=== PATIENT | male | born 1970 | race Caucasian/White ===

== ENCOUNTER 2016-05-15 11:25 | Inpatient (IN) | payer OTHER ==
[2016-05-15 11:59] LABS: % IMMATURE GRANULYOCYTES 0.4 % (0.0-1.1); ABSOLUTE IMMATURE GRANULOCYTES 0.04 10^3/uL (0.00-0.10); ADD DIFF? NO; ADD MORPH? NO; ADD SCAN? NO; ATYPICAL LYMPHOCYTE FLAG 10 (0-99); FRAGMENT RBC FLAG 0 (0-99); HEMATOCRIT 46.9 % (40.0-51.0); HEMOGLOBIN 16.3 g/dL (13.7-17.5); LEFT SHIFT FLG 0 (0-99); LIPEMIA HEMOLYSIS FLAG 90 (0-99); MEAN CELL HEMOGLOBIN 30.9 pg (27.9-34.1); MEAN CELL HEMOGLOBIN CONCENTR. 34.8 g/dL (32.4-36.7); MEAN CELL VOLUME 88.8 fL (81.5-99.8); MEAN PLATELET VOLUME 9.4 fL (8.7-11.7); PLATELET CLUMPS FLAG 0 (0-99); PLATELET COUNT 370 10^3/uL (150-400); RED BLOOD CELL COUNT 5.28 10^6/uL (4.40-6.38); RED CELL DISTRIBUTION WIDTH 12.2 % (11.5-15.2)
[2016-05-15 12:11] LABS: ANION GAP 12 mEq/L (8-16); CALCIUM 10.3 mg/dL (8.5-10.4); CARBON DIOXIDE 27 mEq/l (22-31); CHLORIDE 99 mEq/L (97-110); CREATININE 0.9 mg/dL (0.7-1.3); ETHANOL SERUM < 10 mg/dL (0-10); GLOMERULAR FILTRATION RATE > 60; GLUCOSE 103 mg/dL (70-100); POTASSIUM 4.5 mEq/L (3.5-5.2); SODIUM 138 mEq/L (134-144)
--- NOTE | 2016-05-15 12:53 | EDPHY ---
H & P Stated Complaint: SI HPI/ROS: CHIEF COMPLAINT:Depression. HISTORY OF PRESENT ILLNESS:The patient is a 46-year-old male with a history of depression and anxiety who presents with worsening depression. He was at a therapy appointment with his this morning and asked to go to the emergency room after filling out a questionnaire about self-harm. He admits SI but has no plan. He has no history of suicide attempts. He doubled his dose of Citalopram 8 weeks ago. He had been taking Lorazepam for 2 weeks but quit cold turkey 3 days ago. He has been on Ambien for the past week due to difficulty sleeping. He admits decreased PO intake because of nausea. He denies recent sickness, sore throat, vomiting, or other complaints. REVIEW OF SYSTEMS: A ten point review of systems was performed and is negative with the exception of the items mentioned in the HPI. 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 - Physical Exam Exam: General Appearance: Alert. Vital signs reviewed. BP 138/90. Eyes: Pupils equal and round, no conjunctival injection, no discharge. Anicteric. ENT, Mouth: Mucous membranes are moist, no oropharyngeal erythema or edema. Neck: No lymphadenopathy, supple. No thyromegaly. Respiratory: Lungs are clear to auscultation; no wheezes, rales, or rhonchi. Cardiovascular: Regular rate and rhythm; no murmur, rub, or gallop. Gastrointestinal: Abdomen is soft and nontender, no masses or organomegaly, bowel sounds normal. Skin: Warm and dry, no rashes on exposed skin, normal color. Back: Nontender to palpation over the thoracolumbar spine. No CVAT. Extremities: No lower extremity edema, no calf tenderness or swelling. Neurological: Alert and oriented. Moving all four extremities easily and equally. Psychiatric: Flat affect. Constitutional: Initial Vital Signs Temperature (C) 36.9 C 05/15/16 11:37 Heart Rate 83 05/15/16 11:37 Respiratory Rate 18 05/15/16 11:37 Blood Pressure 138/90 H 05/15/16 11:37 O2 Sat (%) 96 05/15/16 11:37 O2 Delivery Mode Room Air Allergies/Adverse Reactions: Penicillins Allergy (Verified 05/15/16 11:36) Home Medications: Medication Instructions Recorded Citalopram Hydrobromide 40 mg PO DAILY 05/15/16 [Citalopram HBr] LORazepam [Ativan (*)] 1 mg PO BID PRN 05/15/16 Pantoprazole Sodium [Protonix] 20 mg PO DAILY 05/15/16 ZOLPIDEM TARTRATE [Ambien CR 12.5 12.5 mg PO HS 05/15/16 mg] Medical Decision Making ED Course/Re-evaluation: An IV was established and labs ordered. 1357: [facility] has spoken to the patient's psychiatrists and mental health team, who report that he has not always been honest with his medicine usage. Because of this, [facility] has [facility] admission for further monitoring and reevaluation of the patient's medicinal needs. He is medically cleared for psychiatric hospitalization. Although he reports having suicidal ideation he does not have a plan and does not appear to be actively suicidal. There is no evidence of visit visual or auditory hallucination. He is not expressing paranoia. He is not agitated, anxious, or manic. - Data Points Laboratory Results: Laboratory Results 05/15/16 11:41 05/15/16 11:41 05/15/16 11:41 WBC 9.17 10^3/uL (3.80-9.50) RBC 5.28 10^6/uL (4.40-6.38) Hgb 16.3 g/dL (13.7-17.5) Hct 46.9 % (40.0-51.0) MCV 88.8 fL (81.5-99.8) MCH 30.9 pg (27.9-34.1) MCHC 34.8 g/dL (32.4-36.7) RDW 12.2 % (11.5-15.2) Plt Count 370 10^3/uL (150-400) MPV 9.4 fL (8.7-11.7) Neut % (Auto) 77.6 H % (39.3-74.2) Lymph % (Auto) 14.0 L % (15.0-45.0) [place] % (Auto) 7.6 % (4.5-13.0) Eos % (Auto) 0.1 L % (0.6-7.6) Baso % (Auto) 0.3 % (0.3-1.7) Nucleat RBC Rel Count 0.0 % (0.0-0.2) Absolute Neuts (auto) 7.11 H 10^3/uL (1.70-6.50) Absolute Lymphs (auto) 1.28 10^3/uL (1.00-3.00) Absolute Monos (auto) 0.70 10^3/uL (0.30-0.80) Absolute Eos (auto) 0.01 L 10^3/uL (0.03-0.40) Absolute Basos (auto) 0.03 10^3/uL (0.02-0.10) Absolute Nucleated RBC 0.00 10^3/uL (0-0.01) Immature Gran % 0.4 % (0.0-1.1) Immature Gran # 0.04 10^3/uL (0.00-0.10) Sodium 138 mEq/L (134-144) Potassium 4.5 mEq/L (3.5-5.2) Chloride 99 mEq/L (97-110) Carbon Dioxide 27 mEq/l (22-31) Anion Gap 12 mEq/L (8-16) BUN 17 mg/dL (7-23) Creatinine 0.9 mg/dL (0.7-1.3) Estimated GFR > 60 Glucose 103 H mg/dL (70-100) Calcium 10.3 mg/dL (8.5-10.4) Urine Opiates Screen NEGATIVE (NEGATIVE) Urine Barbiturates NEGATIVE (NEGATIVE) Ur Phencyclidine Scrn NEGATIVE (NEGATIVE) Ur Amphetamine Screen NEGATIVE (NEGATIVE) U Benzodiazepines Scrn NEGATIVE (NEGATIVE) Urine Cocaine Screen NEGATIVE (NEGATIVE) U Marijuana (THC) Screen NEGATIVE (NEGATIVE) Ethyl Alcohol < 10 mg/dL (0-10) Departure - Departure Disposition: [facility] IP Clinical Impression: Depression Qualifiers: Qualifier Code: (F32.9) Major depressive disorder, single episode, unspecified Condition: Good Referrals: Erica Davis MD [Primary Care Provider] - As per Instructions Report Scribed for: Alissa Gibbs Report Scribed by: Chirag Collier Date of Report: 05/15/16 Time of Report: 13:23 Physician Review and Approval Statement: 05/15/16 12:53 Portions of this note were transcribed by the medical laboratory assistant. I, Dr. Alissa Gibbs, personally performed the history, physical exam, and medical decision- making; and confirmed the accuracy of the information in the transcribed note.
[2016-05-15] MEDS ORDERED: MAGNESIUM HYDROXIDE 30 ML UDCUP PO PRN (18:54)
[2016-05-15] MEDS ORDERED: NICOTINE POLACRILEX 2 MG GUM B PRN (18:54)
[2016-05-15] MEDS ORDERED: ACETAMINOPHEN 325 MG TAB PO PRN (18:54)
[2016-05-15] MEDS ORDERED: MAG HYDROX/AL HYDROX/SIMETH 30 ML UDCUP PO PRN (18:54)
[2016-05-15] MEDS ORDERED: ZOLPIDEM TARTRATE 5 MG TAB PO PRN (18:56)
[2016-05-16] MEDS: CITALOPRAM 20 MG TAB PO SCH (08:13)
[2016-05-16] MEDS: PANTOPRAZOLE SODIUM 40 MG TAB PO SCH (08:13)
[2016-05-16] MEDS ORDERED: NON-FORMULARY NEW DRUG (Citalopram Hydrobromide [Citalopram Hbr] 40 MG) PO SCH (09:00)
[2016-05-16] MEDS ORDERED: NON-FORMULARY NEW DRUG (Pantoprazole Sodium [Protonix] 20 MG) PO SCH (09:00)
--- NOTE | 2016-05-16 12:37 | BAPA ---
[f rep st] ADMISSION PSYCHIATRIC ASSESSMENT DATE OF SERVICE: 05/16/2016 CHIEF COMPLAINT: "I've been feeling really anxious overwhelmed. I wanted outside help". HISTORY OF PRESENT ILLNESS: The patient is a 46-year-old male who has 3 minor children, who has a history of anxiety and depression since 1997. The precipitant to his recent episode of increased anxiety and depression were the results of the presidential election on 03/26/2016. The patient states that after that he began feeling increased anxiety and depression. At the end of March, his Celexa was increased from 20-40 mg which he had done in the past with good results. He stated that he had not felt better and went to see his therapist, Kayleen Lezama, on 05/15/2016. They did a scale and she was trying to get him to contract for safety for suicidal ideation, but patient stated he was unable to do so and she sent him to the ED. The patient states he did not have actual suicidal thoughts with a plan, but had thoughts of his , like people finding him on a trail and he was thinking about his . He denies a history of any suicide planning or intent, and denies a history of suicide attempts in the past. The patient was put on Ativan by his PCP, but he has been off it for 3 days and he stopped without tapering. The patient is very concerned about what meds he takes. He was also put on Ambien CR 12.5 QHS for insomnia. He states he has been sleeping 4 hours a night, but not more than that. His usual amount is 7, but he does feel rested during the day. His appetite is decreased with weight loss, and he reports the his anxiety makes his energy level high. He was taking lorazepam for 2 weeks. The patient told the TLC worker, "I'm here because I've had really bad anxiety and depressed feelings lately, feeling like I'm revved up. I have been taking psychiatric drugs and went up on my citalopram by my psychiatrist. Lorazepam was prescribed by PCP. I have rebound with it, but I have not been taking it for 3 days, now I feel anxious like I don't know what to do next. I wake up, not necessarily anxious. I take Ambien to help me sleep. I relax then I get revved up again. This all started 8 weeks ago (pt stated to this MD this was an error in time) when I went up on my citalopram I think. I been thinking about my own , not thinking about hurting myself.... I have never tried to hurt myself. I lost 25 pounds in the past 8 weeks. I am worried about myself, too". HISTORY OF PRESENT ILLNESS: The patient saw therapist, Kayleen Lezama, for the 2nd time yesterday. She was concerned about suicidal ideation and sent him to the ED on an M1 hold. The patient states he wanted to come into the hospital voluntarily. He is feeling much better today and states this is the best he has felt in 7 weeks. He only slept 4 hours last night. He ate a good meal last night. PSYCHIATRIC HISTORY: No suicide attempts. No hospitalizations. Has been on citalopram 20 mg since 1997. In his 30s he went from 20 to 40 and was on that dose for about 7 8 years and felt much better. He recently started seeing Gilma Artis, he last saw her 05/10/2016 at her private practice and Kayleen Lezama, [employer] therapist at [facility], seen twice. Also, recently was put on Ativan which he stopped taking, and is currently on Ambien CR 12.5 for sleep. SUBSTANCE ABUSE HISTORY: Patient has a history of social alcohol use since age 19. He drinks 2 beers lately. History of THC use as an adult, less than 1 time per week. PSYCHIATRIC HISTORY: Brother has depression and anxiety. No family history of substance abuse. MEDICAL HISTORY: Patient is healthy. SOCIAL HISTORY: The patient was born in [place]. He has 1 brother who is 3 years younger. His parents raised him, and they are still together. They are flying out to see him. He has 3 children ages 12, 7 and 5. 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 They have been over 12 years. The patient states he does not have a lot of close friends. He is a high school graduate with a BS in mechanical engineering at [employer], an MS in mechanical engineering at [employer], and an MS in real estate management. 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 No legal problems. Enjoys watching TV and playing with his children. MENTAL STATUS: Patient is alert and oriented x4. Mood is "better than I have felt in 7 weeks." Affect is appropriate. Thoughts logical and coherent. Speech normal rate and rhythm. + Sx BAUTISTA Sleeps 4 hours at night. Energy level is good. Poor appetite with recent weight loss. Denies auditory or visual hallucinations. Denies paranoid ideation. No symptoms of psychosis or babak. IQ, fund of knowledge, concentration and memory are intact. Insight and judgment are good. IMPRESSION: 1. Major depressive disorder and generalized anxiety disorder. 2. No medical problems. 3. Stressors: Conflict with over taking psychiatric medications as well as results of political election. Long history of anxiety and depression. 4. Gibson V on admission was 30. PLAN: Continue Celexa, patient feeling good today at 40 mg. The patient was put on hydroxyzine. He was informed he can take that for anxiety. He prefers not to take benzo, so Ativan was not ordered. Will split up Rossi hunt per patient's request. He can get 5 mg at night and then 5 mg later in the middle the night if he cannot sleep. The patient is already attending groups and will be seen by the occasional caregiver and the medical physician. He meets criteria for inpatient psychiatric hospitalization. /[id number]/MODL MTDD
[2016-05-16] MEDS ORDERED: ZOLPIDEM TARTRATE 5 MG TAB PO PRN (12:38)
--- NOTE | 2016-05-16 14:48 | BCON ---
[f rep st] BEHAVIORAL HEALTH CONSULTATION INTERNAL MEDICINE CONSULTATION. DATE OF CONSULTATION: 05/16/2016 REFERRING PHYSICIAN: Haydee Sampson MD REASON FOR CONSULTATION: Medical clearance for inpatient behavioral health stay. HISTORY OF PRESENT ILLNESS: The patient came to the [facility] Emergency Department on an M1 hold. He had been at his psychotherapist's office , where he was expressing suicidal ideation and could not contract for safety. In the emergency department, he was evaluated by the mental health team and admitted for further psychiatric care. He currently reports he feels better, though he still has symptoms of anxiety. Otherwise, he is without any acute complaints. PAST MEDICAL HISTORY: 1. Anxiety and depression. 2. Dyslipidemia. 3. Gastroesophageal reflux disorder. PAST SURGICAL HISTORY: He has not had any surgeries. MEDICATIONS: Prior to admission, he was takin. Lorazepam 1 mg p.o. b.i.d. p.r.n. 2. Pantoprazole 20 mg p.o. daily. 3. Zolpidem extended release 12.5 mg at bedtime. 4. Citalopram 40 mg daily. ALLERGIES: There is an allergy listed to penicillins. SOCIAL HISTORY: He is . He lives with his . He works as a general farmworker. He has 3 school-age children at home and he is a very active participant in raising them. FAMILY HISTORY: Noncontributory. REVIEW OF SYSTEMS: He reports about a 20 pound weight loss over about 2 months since he has had his recurrence of anxiety. He denies symptoms referable to the thyroid, including no tremor, no extra frequent bowel movements, no abnormal feeling of hot or being sweaty. Otherwise, a 10-point review of systems is negative. PHYSICAL EXAMINATION: VITAL SIGNS: Blood pressure 120/71. When he first presented to the emergency department, it was at 138/90. Heart rate 81, respiratory rate 16, oxygen saturation 96% on room air, temperature 36.8 degrees centigrade. His weight is 74.8 kg for a body mass index of 23. GENERAL : This is a well-nourished, well-developed man, cooperative and in no acute distress. Appears his chronologic age. HEENT: Extraocular movements are intact. Pupils are equal, round, and reactive to light. Mucous membranes are moist. Dentition is in good condition. NECK: There is no thyromegaly. HEART : There is a regular rate and rhythm, with no murmurs, rubs, or gallops. LUNGS : Clear to auscultation bilaterally. ABDOMEN: Soft, nontender, nondistended with normoactive bowel sounds. EXTREMITIES: There is no cyanosis, clubbing, or edema. NEUROLOGIC: He is alert and oriented x3. Cranial nerves II-XII are grossly intact. There is no focal weakness. Sensation is intact to light touch. Gait is within normal limits. LABORATORY DATA: Laboratory studies were drawn in the emergency room. CBC was overall within normal limits but for a predominance of absolute neutrophils at 7.11 and a deficit of absolute eosinophils at 0.01, likely of no clinical significance. Serum chemistry revealed normal renal function and electrolytes. His glucose was slightly elevated at 103, but this was likely nonfasting. Toxicology in the serum was negative for ethyl alcohol and in the urine was negative for any substances of abuse. ASSESSMENT/RECOMMENDATIONS: 1. Mental health issues. Pending further evaluation and management per Psychiatry and the mental health team. 2. Weight loss. Likely due to anxiety. He had a normal TSH in May of this year. It is unlikely that he has a thyroid condition contributing to his weight loss. However, I will add a TSH onto the blood that was drawn yesterday. 3. Dyslipidemia. He had his lipid panel done in May of this year. He had an elevated total cholesterol at 245, an elevated LDL at 148, but also an elevated HDL at 60. Per the [place] criteria, he carries about a 4% risk per year of coronary disease, which is too low to recommend treatment with a statin. It is likely his lipid panel is better than it was then after a 20 pound weight loss, but still, considering his history of dyslipidemia, might exercise caution prescribing medications which could promote the metabolic syndrome. Otherwise, he can follow up regarding his cholesterol with his primary care provider. I see no medical contraindications to the patient's continued stay on the inpatient behavioral health unit or to any psychiatric medications or procedures. Thank you very much for including me in the care of Mr. Moore and please do not hesitate to contact me or the hospitalist service should there be a need for further medical evaluation. /[id number]/MODL MTDD
[2016-05-16] MEDS ORDERED: ZOLPIDEM TARTRATE 5 MG TAB PO SCH (21:00)
[2016-05-16] MEDS: hydrOXYzine HCL 50 MG TAB PO PRN (23:53)
[2016-05-17] MEDS: PANTOPRAZOLE SODIUM 40 MG TAB PO SCH (08:39)
[2016-05-17] MEDS: CITALOPRAM 20 MG TAB PO SCH (08:40)
[2016-05-17] MEDS ORDERED: traZODone 100 MG TAB PO PRN (10:30)
--- NOTE | 2016-05-17 10:34 | SOAPPROG ---
SOAP Progress Note Assessment/Plan: Assessment: Pt is a 46 y/o M C male with no previous psych hosp or suicide attempts who was put on an M1 by a therapist he was seeing for the second time after he could not contract for safety. When seen on 05/16/16 he reported feeling better and denied SI but last night had problems sleeping and was very anxious. He is ambivalent about being here and feels he is letting his down. Plan:D/C Ambien pt told that M1 expires tomorrow Trial of Trazodone for sleep 05/17/16 10:31 Subjective: "I woke up with nightmares and thoughts that the medication was wrong. I am beginning to regret my choice...of coming in here." Objective: Vital Signs Temp Pulse Resp BP Pulse Ox 36.8 C 91 16 114/80 98 05/17/16 06:30 05/17/16 06:30 05/17/16 06:30 05/17/16 06:30 05/17/16 06:30 Pt is A+O x4 pacing around his room mood-Depressed" appears anxious affect-appr thoughts-negative, guilt, blaming self, logical denies S/H I plan /intent sleep-slept 4 hours appetite-wnl not attending group right now speech-angry tone memory-intact no sx psychosis or babak no A/H H I/J-fair - Time Spent With Patient Time Spent With Patient: 25' - Pending Discharge Pending Discharge Within 24 Hours: Yes Pending Discharge Within 48 Hours: Yes Pending Discharge Date: 05/18/16 Pending Discharge Time: 11:00 ICD10 Worksheet Patient Problems: Problems Problem Status Diagnosed Depression Acute
[2016-05-17] MEDS ORDERED: traZODone 100 MG TAB PO SCH (21:00)
[2016-05-18 06:32] VITALS: RESP 14
[2016-05-18] MEDS: CITALOPRAM 20 MG TAB PO SCH (08:44)
[2016-05-18] MEDS: PANTOPRAZOLE SODIUM 40 MG TAB PO SCH (08:44)
[2016-05-18] MEDS ORDERED: QUEtiapine FUMARATE 100 MG TAB PO SCH (21:00)
[2016-05-19 06:07] VITALS: BP 107/60; PULSE 97; TEMP 99.2; O2SAT 94
[2016-05-19] MEDS: PANTOPRAZOLE SODIUM 40 MG TAB PO SCH (08:15)
[2016-05-19] MEDS: CITALOPRAM 20 MG TAB PO SCH (08:16)
[2016-05-19] MEDS: hydrOXYzine HCL 50 MG TAB PO PRN (09:23)
--- NOTE | 2016-05-19 13:18 | SOAPPROG ---
SOAP Progress Note Assessment/Plan: Assessment: Plan: 05/19/16 13:20 Remains anxious and depressed. Will proceed with augmentation of citalopram with Seroquel. Convert to voluntary status. Subjective: LATE ENTRY FOR 05/18/16 Pt seen, discussed with staff and Dr. Khan, chart reviewed. Reports continued insomnia, depressed mood and anxiety. States he is more appreciative of family support and motivated to pursue outpt treatment. He denies active SI though made statements to RN last evening that prompted SP2 briefly and then LOS overnight. He states to me that this has completely passed today and was more frustration over continued insomnia than anything. We reviewed meds and treatment plan. I indicated to him that the citalopram has had enough time for the interval dose increase to be effective. I offered option of changing in class, likely to Prozac as his brother has done well on this and he has not tried it, or augmentation of citalopram. He prefers a trial of Seroquel to augment after extremely thorough review of the risks, benefits, alternative, chemistry, action, metabolism, pharmacokinetics and pharmacodynamics and long- term implications. Objective: Vital Signs Temp Pulse Resp BP Pulse Ox 37.3 C 97 14 107/60 94 05/19/16 06:06 05/19/16 06:06 05/19/16 06:06 05/19/16 06:06 05/19/16 06:06 MSE: Moderately anxious, coop. Affect is anxious, dysphoric, stable. Mood is "anxious." TP linear. TC reveals no psychosis. He denies active SI at this time. - Time Spent With Patient Time Spent With Patient: 45" - Pending Discharge Pending Discharge Within 24 Hours: No ICD10 Worksheet Patient Problems: Problems Problem Status Diagnosed Depression Acute
--- NOTE | 2016-05-19 14:06 | BDS ---
[f rep st] BEHAVIORAL HEALTH DISCHARGE SUMMARY REASON FOR ADMISSION: Patient is a 46-year-old male, referred to the emergency department by his therapist after having been placed on an M1 hold due to some statements in regard to suicide. He had made some vague comments in reference to feeling more and more depressed, helpless, and hopel ess, and the therapist was concerned that he was unsafe. He was evaluated in the emergency departmen t, and there was a question in regard to his meeting criteria for the M1 hold. I was called on-call and suggested that they called the patient's outpatient psychiatrist, Dr. Gilma Artis. After doing thi s, Dr. Artis was able to state that he had made similar statements to her and that she was concerned e nough about his safety and about the ineffective nature of his antidepressant regimen at this time, t o recommend proceeding with the hold for at least a brief inpatient evaluation and medication 2nd opi nion. The patient was then admitted to the [facility] inpatient unit. A full descript ion of the events preceding admission can be found in Dr. Sampson's Admission History, dated . ADMITTING DIAGNOSES: Per Dr. Sampson: Major depressive disorder, generalized anxiety disorder. ADMITTING PHYSICAL EXAMINATION: Performed by Dr. Avi Gunter reveals no acute physical findings. ADMISSION LABORATORY: CBC is normal. Serum chemistries are normal. TSH is normal at 0.99. Urine d rug screen is negative for all substances, and alcohol is less than detectable. HOSPITAL COURSE: The patient was admitted to the behavioral [facility] inpatient unit on an M1 hold. He was pleasant and cooperative and participated actively in all evaluations and therapies upo n arriving to the unit and throughout his stay. He continued to voice feelings of helplessness and h opelessness, as well as the intense depression and anxiety, focusing mostly on the anxiety and insomn ia. He stated that he felt like the increase of the citalopram to 40 mg from 20 mg approximately 7 w eeks prior had not made a difference, even though it had helped in the past. He states that he iris nues to wake up in the middle of the night, had been taking increasing doses of lorazepam. After he stopped the lorazepam abruptly, his midcycle awakening worsened. In the hospital, he was given trial s of Ambien and hydroxyzine, as well as trazodone that did not remedy the situation. I assumed the patient's care on 05/18/16 and did a complete review with him of his history and his cu rrent treatment. I believe that he has become refractory to the citalopram at this time, and I offer ed him the option of either switching in class, likely to Prozac, as his brother had had a good respo nse to this and he, himself, has done well on SSRIs in the past, or a trial in augmentation of the ci talopram with another agent. The patient preferred the augmentation strategy and we reviewed several options, including an atypical and lithium. Patient preferred a trial of Seroquel and this was begu n at 100 mg at h.s. He tolerated this well, slept throughout the night and was very pleased with the overall benefit. He suffered no immediate side effects, including excessive sedation in the morning . The patient's hospital course was uncomplicated. I met with him again on the morning of the , and he was bright and hopeful, stating that he had an outpatient appointment on Friday, the , with _ at the outpatient clinic here at [facility]. He requested discharge from the hospital to go home with his . He noted supports, including his parents whom are in [place], and I felt that this was reasonable. The client care representative was able to contact the , and she voiced her support for the plan. CONDITION ON DISCHARGE: Stable. The patient's affect was still somewhat constricted and anxious, th ough was less dysphoric. His mood was significantly better. He was hopeful and forward thinking and voicing no thoughts of suicide. DISCHARGE MEDICATIONS: Protonix 20 mg daily, citalopram 40 mg daily, and Seroquel 100 mg at h.s. DISPOSITION: Patient is to leave the hospital with his . FOLLOWUP: Is as above with the outpatient behavioral health clinic. LEGAL COURSE: Patient was converted to a voluntary status, with expiration of his M1 hold. /[id number]/MODL
== END 2016-05-19 13:39 | disposition home or self-care (01) | DRG 885 ==
LOC: EDUNIT# → BBEH 17:32
PROVIDERS: ADMIT Psychiatry & Neurology Psychiatry; ATTEND Psychiatry & Neurology Psychiatry
DX: F33.9 Major depressive disorder, recurrent, unspecified (principal); F41.1 Generalized anxiety disorder; E78.5 Hyperlipidemia, unspecified; K21.9 Gastro-esophageal reflux disease without esophagitis
CPT/HCPCS: G0477; G0480